=== PATIENT | male | born 1980 | race Caucasian/White ===

== ENCOUNTER 2017-10-28 17:58 | Emergency (ER) | payer OTHER ==
[~2017-10-28] VITALS: Ht 185.4 cm; Wt 130.0 kg
[2017-10-28] MEDS ORDERED: triamcinolone acetonide 40mg/ml inj IM ONE (18:10)
[2017-10-28 18:34] VITALS: BP 141/91
== END 2017-10-28 18:41 | disposition home or self-care (01) ==
LOC: ER 17:58
DX: T63.441A Toxic effect of venom of bees, accidental (unintentional), initial encounter (principal); Y92.69 Other specified industrial and construction area as the place of occurrence of the external cause; Z91.030 Bee allergy status
CPT/HCPCS: 96372; 99283; J3301

== ENCOUNTER 2023-04-03 09:13 | Day surgery (SDC) | payer BC, OTHER ==
[~2023-04-03] VITALS: Ht 185.4 cm; Wt 140.1 kg
[~2023-04-03 09:13] MED LIST: LISI10TA27 PO
[2023-04-03 09:34] VITALS: BP 137/95; PULSE 55; RESP 16; TEMP 97.9; O2SAT 99
[2023-04-03 10:30] VITALS: RESP 16; O2SAT 99
[2023-04-03 11:00] VITALS: BP 143/87; PULSE 58; RESP 16; O2SAT 99
[2023-04-03 11:15] VITALS: BP 139/76; PULSE 59; RESP 16; O2SAT 99
[2023-04-03 11:30] VITALS: BP 143/67; PULSE 59; RESP 16; O2SAT 99
== END 2023-04-03 11:42 | disposition home or self-care (01) ==
LOC: SSTAY O 09:13
PROVIDERS: ATTEND Internal Medicine Endocrinology, Diabetes & Metabolism
DX: E04.1 Nontoxic single thyroid nodule (principal)
CPT/HCPCS: 10005; 60100; 76942